=== PATIENT | female | born 1945 | race Caucasian/White ===

== ENCOUNTER 2019-07-11 07:52 | Day surgery (SDC) | payer MEDICARE, BC ==
[~2019-07-11 07:52] MED LIST: Advair Hfa 115-12 GM INH; Dyazide 37.5-21 EACH PO; Flonase 0.05% N16 GM; LEVOXYL PO; LEVSOD50 PO; TRIHYD253A PO
--- NOTE | 2019-07-11 08:27 | NUR ---
History, Chart, Medications and Allergies reviewed before start of procedure.Patient confirms NPO status and agrees with scheduled surgery. Pre-Op teaching done. Pt verbalizes understanding. Patient States Post-Procedure ride home has been arranged. Patient states colon prep results clear. PT C/O SINUS DRAINAGE AND COUGH. LS CLEAR OTHERWISE. DENIES SOB.
--- NOTE | 2019-07-11 09:01 | NUR ---
07/11/19 0901 JEEVAN ONEAL History, Chart, Medications and Allergies reviewed before start of procedure.MONITOR INTACT WITH CONTINUOUS PULSE OXIMETRY AND INTERMITTENT BP.3-LEAD EKG REVIEWED WITH PHYSICIAN PRIOR TO START OF PROCEDURE.O2 VIA N/C INTACT THROUGHOUT SEDATION/PROCEDURE. PATIENT DETERMINED TO BE ASA APPROPRIATE FOR PROPOFOL SEDATION PRIOR TO START OF PROCEDURE BY DR. TRAN.
--- NOTE | 2019-07-11 09:44 | NUR ---
"DAY SURGERY RN | DISCHARGE VSS. A/O. DENIES DIZZINESS. STEADY ON FEET. DISCHARGE INSTRUCTIONS GIVEN. TAKEN IN WHEELCHAIR TO FRONT ENTRANCE BY VOLUNTEER. IS RIDE HOME."
== END 2019-07-11 22:35 | disposition home or self-care (01) ==
LOC: ORSCMMR 07:52 → ORD 09:00 → ORSCMMR 09:00
PROVIDERS: Internal Medicine Gastroenterology
PROC: 0DBK8ZX Excision of Ascending Colon, Via Natural or Artificial Opening Endoscopic, Diagnostic (ICD-10-PCS; principal; 2019-07-11 09:00)
PROC: 0DBL8ZX Excision of Transverse Colon, Via Natural or Artificial Opening Endoscopic, Diagnostic (ICD-10-PCS; principal; 2019-07-11 09:00)
PROC: 0DBM8ZX Excision of Descending Colon, Via Natural or Artificial Opening Endoscopic, Diagnostic (ICD-10-PCS; principal; 2019-07-11 09:00)
DX: R19.5 Other fecal abnormalities (principal); K63.5 Polyp of colon; K57.30 Diverticulosis of large intestine without perforation or abscess without bleeding; E03.9 Hypothyroidism, unspecified; J45.909 Unspecified asthma, uncomplicated; R03.0 Elevated blood-pressure reading, without diagnosis of hypertension; Z79.899 Other long term (current) drug therapy
CPT/HCPCS: 88305; J2704; J7120

== ENCOUNTER → 2022-05-18 | Outpatient (CLI) | payer MEDICARE, BC | LOC: LAB 11:00 → LAB SHORT 11:00 | DX: D48.5 Neoplasm of uncertain behavior of skin (principal) | CPT/HCPCS: 88305 ==